=== PATIENT | male | born 1985 | race Caucasian/White ===

== ENCOUNTER 2025-04-20 08:23 | Outpatient (AMB) | payer BC, SELFPAY ==
--- NOTE | 2025-04-20 08:25 | A.OFFPC_ITS ---
Vital Signs 04/20/25 08:38 Height 6 ft 1.19 in Weight 147 lb BMI 19.3 BP 108/58 L Blood Pressure Location Lt brachial Position Sitting Pulse 72 Pulse Source Pulse Oximeter Temp 97.9 F Temp Source Oral Pulse Oximetry (%) 97 Oxygen Delivery Method Room Air Intake Visit Reasons: HUMAN RELATIONS MANAGER- Migraines Accompanied by: Self / Same As Patient Allergies No Known Allergies Allergy (Verified 04/20/25 08:39) Medication List - Last Reconciled 04/20/25 by Cedric Mosqueda MD ibuprofen 800 mg PO Q8H nicotine 1 patch transdermal Q24H nicotine (polacrilex) 4 mg buccal Q2H rizatriptan 10 mg orally; Tobacco use date assessed: 04/20/25 Dental Screening Dental Screen Date: 04/20/25 Did you have a dental visit in the last 12 months?: Yes HPI HPI Comments History of Present Illness Details History of Present Illness The patient is a 39-year-old male presenting to establish care and for management of chronic daily headaches. Chronic Migraine: The patient is establishing care after approximately 10 years without seeing a physician, primarily for evaluation of chronic headaches. He has a past diagnosis of occipital neuralgia, for which he received medications and injections that reportedly worsened his symptoms. He stopped treatment about 10 years ago after losing his insurance. Over the past 10 years, the headaches were manageable, occurring every couple of days, until a flare-up began about two months ago. He now experiences headaches daily, often waking up with a pounding pain that lasts all day. The pain is described as a pulsing pressure located on the right posterior side of his head, consistent with the greater and lesser occipital nerve region. He denies any aura, such as visual changes or smells. Due to the increased intensity and duration, he has recently started taking Tylenol and Motrin together, though he tries to limit his use. He has a history of vitamin D deficiency and has been trying magnesium citrate supplements. The patient believes the root cause of his headaches is a long-standing habit of cracking his neck, which he has done since childhood to relieve stiffness. He also notes that his sleeping position while watching television may contribute to neck stiffness and subsequent headaches. Tobacco Use Disorder: The patient reports smoking since the age of 14. He currently smokes approximat jabier 10 cigarettes per day. He states that he is ready to consider quitting. Cervicalgia: The patient reports significant neck stiffness and pressure. He has a chronic habit of cracking his neck since childhood, which at times required significant force, and he believes this initiated his headache problem. He previously started physical therapy for this issue but did not complete the course of jonathan atment. Surgical History: - Repair of gastroschisis at - Repair of bowel obstruction at approxi mately 6 years of age Medications: - Tylenol and Motrin (three tablets), ta janiya together intermittently for headaches - Magnesium citrate, for headaches Social History: - Tobacco Use: The patient smokes about 10 cigarettes per day and has been smoking since he was 14 years old. 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 - Sexual History: He reports being sexua lly active. Family History: - Father: from lung cancer; he was a smoker. Past Medical History - Occipital neuralgia, diagnosed [facility] 10 years ago and treated with medications and injections - History of Vitamin D deficiency - History of gastroschisis at - History of bowel obstruction at age 6 - Recent emergency department visit for headaches, where imaging was not performed Health Maintenance - Ordered comprehensive laboratory studi es including CBC, CMP, HbA1c, lipid panel, hepatitis panel, HIV, RPR, TSH, vitamin B12, folate, vitamin D, and magnesium. - Ordered urine testing for chlamydia an d gonorrhea. - Advised the patient to schedule an eye examination with an car conditioner. - Scheduled a follow-up appointment in t wo weeks to review results and assess treatment response. [facility] Medical History (Updated 04/20/25 @ 09:04 by Cedric Mosqueda MD) Myalgia Cervicalgia Sleeping difficulty Frequent headaches Migraines Occipital neuralgia Family History (Updated 04/20/25 @ 08:26 by Celi Erickson CMA) Mother No problems noted. Father No problems noted. Social History Housing: House Alcohol intake: current Patient Tobacco Use Status: Current everyday Tobacco user e-Cigarette/Vaping Use: Currently Using Substance Use Type: Marijuana service: No Current occupational status: employed Cognitive needs: No Hearing needs: No Vision needs: No Questionnaire PHQ-9 Over the last 2 weeks, how often have you been bothered by any of the following problems? 1. Little interest or pleasure in doing things: several days 2. Feeling down, depressed, or hopeless: several days 3. Trouble falling or staying asleep, or sleeping too much: not at all 4. Feeling tired or having little energy: several days 5. Poor appetite or overeating: several days 6. Feeling bad about yourself - or that you are a failure or have let yourself or your family down: several days 7. Trouble concentrating on things, such as reading the newspaper or watching television: several days 8. Moving or speaking so slowly that other people could have noticed. Or the opposite - being so fidgety or restless that you have been moving around a lot more than usual: not at all 9. Thoughts that you would be better off or of hurting yourself in some way: not at all Total score: 6 Depression Screening Interpretation: Negative Depression Screening Done: Yes Source: Developed by Drs. Karel Whelan, Viki Evangelista, Alfredito Mishra and colleagues, with an educational loretta from [employer]. Thrive Questionnaire Date Thrive assessed: 04/20/25 I am a: Patient What is your living situation today?: I have a steady place to live Within the past 12 months, did the food you bought not last and you didn't have the money to get more?: Never true Within the past 12 months, did you worry whether your food would run out before you got money to buy more?: Never true Do you have trouble paying for medicines?: No Do you have trouble getting transportation to medical appointments?: No Do you have trouble paying your heating and electricity bill?: No Do you have trouble taking care of your child, family member or friend?: No Do you have trouble with day-to-day activities such as bathing, preparing meals, shopping, managing finances, etc.?: No Are you currently unemployed and looking for a job?: No Are you interested in more education?: No Please select the resources that you would like help with: None Currently or been in a relationship where the following occur: No concerns reported THRIVE Score: 0 AUDIT C Alcohol Use Questionnaire (AUDIT-C) 1. How often do you have a drink containing alcohol?: 2-3 times a week 2. How many drinks containing alcohol do you have on a typical day when you are drinking?: 3 or 4 3. How often do you have six or more drinks on one occasion?: Monthly Total Score: 6 MALATHI-7 AMB Questionnaire MALATHI-7 Date MALATHI - 7 assessed: 04/20/25 Feeling nervous, anxious, or on edge: 1 = Several days Not being able to stop or control worryin = Several days Worrying too much about different things: 1 = Several days Trouble relaxin = Several days Being so restless that it is hard to sit still: 1 = Several days Becoming easily annoyed or irritable: 1 = Several days Feeling afraid as if something awful might happen: 1 = Several days Total MALATHI-7 score (0-4 normal; 5-9 mild; 10-14 moderate; 15-21 severe): 7 Source: Developed by Drs. Karel Whelan, Viki Evangelista, Alfredito Mishra and colleagues, with an educational loretta from [employer]. Review of Systems Narrative Review of Systems - Constitutional: Reports significant fatigue and daytime somnolence, stating he will fall asleep if he sits down. - Neurological: Reports daily headaches with pounding, pulsing pressure on the right posterior side of the head, present upon waking. Denies aura. - HEENT: Has not had his eyes checked in a while. Reports sensation of earwax in the left ear. Denies snoring. - Musculoskeletal: Reports neck stiffness and pressure. - Gastrointestinal: Reports normal bowel movements. - Genitourinary: Reports normal urination. - Integumentary/Extremities: Denies swelling of the legs. 10-point ROS reviewed and negative except as noted in HPI Physical exam (Primary Care) Vital Signs: Last Vital Signs Temp 97.9 F 04/20/25 08:38 Pulse 72 04/20/25 08:38 BP 108/58 L 04/20/25 08:38 Pulse Ox 97 04/20/25 08:38 Oxygen Delivery Method Room Air 04/20/25 08:38 BMI result Body Mass Index 19.3 Tobacco/Smoking Status: Tobacco use Status Tobacco use date assessed 04/20/25 04/20/25 08:26 Patient Tobacco Use Status Current everyday Tobacco 04/20/25 08:44 e-Cigarette/Vaping Use Currently Using 04/20/25 08:44 PHQ-9: PHQ-9 Score PHQ-9: Total score 6 04/20/25 08:38 Depression Screening Interpretation: Negative Thrive Assessment: Date of Thrive Assessment Date Thrive assessed 04/20/25 04/20/25 08:26 Currently or been in a relationship where the following occur: No concerns reported Narrative Physical Exam General: Well-appearing, in no acute distress. Vital signs: Within normal limits. HEENT: Normocephalic, atraumatic. PERRLA, EOMI. Conjunctiva clear, sclera anicteric. Oropharynx clear, mucous membranes moist. TMs intact on the right, unable to visualize the left due to ear wax. Neck: Supple, no lymphadenopathy, no thyromegaly, no JVD or carotid bruits. Cardiovascular: RRR, normal S1/S2, no murmurs, rubs, or gallops. Peripheral pulses 2+ and symmetric. No edema. Respiratory: Lungs clear to auscultation bilaterally, no wheezes, rales, or rhonchi. Normal effort. Abdomen: Soft, non-tender, non-distended. Normoactive bowel sounds. No hepatosplenomegaly, no masses. Notable for horizontal and vertical scars from previous surgeries. MSK: Full range of motion, no joint swelling or deformity. Normal gait. Skin: Warm, dry, intact. No rashes, lesions, or pallor. Neuro: Alert and oriented x3. Cranial nerves II-XII intact. Strength 5/5 throughout. Sensation intact. Reflexes 2+ symmetric. Normal coordination and gait. Psych: Appropriate mood and affect. Normal judgment and insight. Office Procedures Flu Questionnaire Does the patient have a severe egg allergy?: No Does the patient have severe life threatening allergies?: No Does the patient have a fever or illness today?: No Has the patient ever had Guillain-Goldvein Syndrome?: No Has the patient ever had any past reaction to a flu shot?: No Immunizations Fluarix [id number] (PF) 45 mcg (15 mcg x 3)/0.5 mL IM syringe Performing Provider: Cedric Mosqueda MD Performing Location: [facility] – [place], [place] [facility] Documented (not given) by: Celi Erickson CMA on 04/20/25 08:46 Reason Not Given: Patient Refused Coding Level of Care Code New Pt Level 4 (57105) Add On Problem Visit Only Diagnoses Migraines G43.909 History of intestinal surgery Z98.890 History of seizures Z87.898 Family history of depression Z81.8 Myalgia M79.10 Cervicalgia M54.2 Occipital neuralgia M54.81 Sleeping difficulty G47.9 Frequent headaches R51.9 Assessment & Plan Assessment & Plan (1) Migraines: Code(s): G43.909 - Migraine, unspecified, not intractable, without status migrainosus Category: Medical (2) History of intestinal surgery: Code(s): Z98.890 - Other specified postprocedural states (3) History of seizures: Code(s): Z87.898 - Personal history of other specified conditions (4) Family history of depression: Code(s): Z81.8 - Family history of other mental and behavioral disorders (5) Myalgia: Code(s): M79.10 - Myalgia, unspecified site Category: Medical (6) Cervicalgia: Code(s): M54.2 - Cervicalgia Category: Medical (7) Occipital neuralgia: Code(s): M54.81 - Occipital neuralgia Category: Medical (8) Sleeping difficulty: Code(s): G47.9 - Sleep disorder, unspecified Category: Medical (9) Frequent headaches: Code(s): R51.9 - Headache, unspecified Category: Medical Plan Consent The patient provided verbal consent for STI screening for chlamydia and gonorrhea. Patient was informed and verbally consented to the use of an ambient scribe for clinic note documentation during this visit. Plan 1. Chronic Migraine - Prescribed ibuprofen 800 mg for pain management. - Prescribed rizatriptan for abortive therapy, to be taken at headache onset, with a second dose permitted after two hours if symptoms persist. - Placed a referral to Neurology for specialist evaluation and management. 2. Tobacco Use Disorder - Prescribed nicotine replacement therapy consisting of a 14 mg daily patch and lozenges for breakthrough cravings to support smoking cessation. 3. Cervicalgia - Placed a referral to Physical Therapy to address neck stiffness and pain. - Advised against chiropractic manipulation at this time due to the neurologic nature of his symptoms. 4. Fatigue And Daytime Sleepiness - Ordered an at-home sleep study to evaluate for a potential sleep disorder, such as sleep apnea, as a cause for his fatigue and morning headaches. 5. Cerumen Impaction, Left Ear - Prescribed ear drops to be used in the left ear twice daily for five days prior to his follow-up visit to soften the wax for subsequent examination and potential removal. Discussion Notes I reviewed with the patient that he is presenting to [facility] care after a ten- year absence from medical oversight, with a primary complaint of chronic, debilitating daily headaches that are consistent with his prior diagnosis of occipital neuralgia and also fit a pattern of chronic migraine. I explained the initial treatment plan, which includes abortive therapy with rizatriptan and an anti-inflammatory medication, ibuprofen 800mg, for symptomatic relief. We discussed conducting a comprehensive workup to identify any underlying or contributing factors. This includes extensive lab work to screen for nutritional deficiencies (like vitamin D), metabolic issues, and infections, as well as a referral to Neurology for specialist management. A physical therapy referral was initiated to address his chronic neck stiffness, and I advised against palliative care nurse at this time given his nerve-related symptoms. I explained that his smoking is a significant trigger for headaches, and we decided to start nicotine replacement therapy to support his desire to quit. Additionally, due to his symptoms of fatigue and morning headaches, an at-home sleep study will be ordered to rule out sleep apnea. The patient consented to STI screening. We scheduled a follow-up in two weeks to review all diagnostic results and monitor his response to the initiated treatments. Patient Instructions - Take one tablet of Rizatriptan as soon as you feel a headache starting. If the headache does not improve in two hours, you may take a second tablet. - You may take Ibuprofen 800 mg for headache pain. - To help you quit smoking, apply one 14 mg nicotine patch to your skin each day. Use a nicotine lozenge if you feel a strong craving to smoke. - Put five drops in your left ear twice a day for the five days just before your next appointment. This will help soften the earwax. - Please go to the lab to have your blood drawn and provide a urine sample for the tests that were ordered. - Schedule an appointment with an eye doctor to have your vision checked, as this could be related to your headaches. - The neurology and physical therapy offices will contact you to schedule your appointments. - You will receive a kit for an at-home sleep study. Please follow the instructions provided with the kit. - Please return for a follow-up visit in two weeks to discuss your test results and how you are feeling. Medical Decision Making The patient is a 39-year-old male establishing care after a 10-year lapse, presenting with debilitating chronic daily headaches. His symptoms are consistent with his prior diagnosis of occipital neuralgia and also demonstrate features of chronic migraine, characterized by daily, pounding, unilateral pain. The primary goal of this visit is to establish care, provide acute symptomatic relief, and initiate a comprehensive diagnostic workup. I have started him on rizatriptan for abortive therapy and high-dose ibuprofen for anti-inflammatory and analgesic effects. Given the chronicity and severity, a neurology referral is imperative for long-term management and consideration of prophylactic medications. The differential for his headache exacerbation is broad, and includes cervicogenic, systemic, and sleep-related causes. His report of significant neck stiffness and a long-standing habit of neck cracking strongly suggests a cervicogenic component, warranting a physical therapy referral; chiropractic manipulation is deferred due to the risk of nerve injury. His symptoms of profound daytime fatigue and morning headaches raise suspicion for obstructive sleep apnea, prompting an at-home sleep study. Comprehensive labs are ordered to rule out underlying metabolic, endocrine, or nutritional deficiencies (e.g., vitamin D, magnesium) that could contribute to his condition. Health maintenance is also a crucial focus. We are addressing his tobacco use, a major modifiable risk factor for headaches and overall health, by initiating nicotine replacement therapy. Baseline screenings (STI, vision) are also being implemented. Follow-up in two weeks is planned to review all findings and adjust the treatment plan accordingly. Total Time Statement 30 min Total time spent caring for the patient today includes pre-visit chart review, documentation, review of laboratory and diagnostic imaging results, medication reconciliation, medically necessary evaluation, counseling on diagnoses, care coordination, ordering appropriate tests and medications, review of tests pe rformed by other providers, reporting test results to the patient, and communication with other healthcare providers. Orders: Orders Complete Blood Count Auto Diff Today Z13.9 - Encounter for screening, unspecified Hepatitis B Surface Antigen Today Z13.9 - Encounter for screening, unspecified Hepatitis C Antibody Today Z13.9 - Encounter for screening, unspecified TSH reflex Free T4 Today Z13.9 - Encounter for screening, unspecified Lipid Panel Today Z13.9 - Encounter for screening, unspecified Magnesium Today Z13.9 - Encounter for screening, unspecified RT home sleep study Today G47.9 - Sleep disorder, unspecified PT Evaluation and Treatment Today M54.2 - Cervicalgia, M79.10 - Myalgia, unsp ecified site Influenza [id number] Immunization Today Z23 - Encounter for immunization Syphilis Screen Today Z13.9 - Encounter for screening, unspecified Comprehensive Met. Panel Today Z13.9 - Encounter for screening, unspecified HIV Ab/Ag Today Z13.9 - Encounter for screening, unspecified UA CC w/rflx Micro + Cult Today Z13.9 - Encounter for screening, unspecified Vitamin B12 and Folate Today Z13.9 - Encounter for screening, unspecified Hemoglobin A1c Today Z13.9 - Encounter for screening, unspecified Hepatitis B Surface Antibody Today Z13.9 - Encounter for screening, unspecified Vitamin D 25-OH (D2 and D3) Today Z13.9 - Encounter for screening, unspecified CT NG by PCR Urine Today Z13.9 - Encounter for screening, unspecified Referrals Neurology Referral G43.909 - Migraine, unspecified, not intractable, without status migrainosus, M54.81 - Occipital neuralgia, R51.9 - Headache, unspecified Medications: New ibuprofen 800 mg PO Q8H 30 tabs 0RF rizatriptan 10 mg orally; 14 tabs 0RF nicotine 1 patch transdermal Q24H 28 ea 0RF nicotine (polacrilex) 4 mg buccal Q2H 100 ea 0RF
[2025-04-20 08:38] VITALS: BP 108/58; PULSE 72; TEMP 36.6; O2SAT 97; BMI 19.3
== END 2025-04-20 09:12 | disposition home or self-care (01) ==
LOC: HO.HMCFMS 08:23
PROVIDERS: Visit Provider Student in an Organized Health Care Education/Training Program
DX: G43.909 Migraine, unspecified, not intractable, without status migrainosus (principal); Z98.890 Other specified postprocedural states; Z87.898 Personal history of other specified conditions; Z81.8 Family history of other mental and behavioral disorders; M79.10 Myalgia, unspecified site; M54.2 Cervicalgia; M54.81 Occipital neuralgia; G47.9 Sleep disorder, unspecified; R51.9 Headache, unspecified; Z23 Encounter for immunization

== ENCOUNTER 2025-04-20 08:23 | Outpatient (REF) | payer BC, SELFPAY ==
--- OUTSIDE RECORDS SUMMARY | 2025-04-20 10:40 | XMS_ITS | Data Portability ---
Author Organization [facility] Address [address] [facility],[place]ter[place] [address] [place] [id number] Care Team Providers Care Form Maker Plaster Name Role Phone JOEL VASQUEZ Referring Provider [phone] Assessment Encounter Date Assessment Date Assessment LastModified by Organization Details LastModified Time 12/30/2018 12/30/2018 Joel Santiago is a 33 year old man with right sided headaches. On exam ,he has tenderness on palpation of the right occipital region. He has features of occipital neuralgia. Trial of right occipital nerve block under ultrasound guidance was recommended. The risks and benefits of the procedure were discussed in detail. He wishes to proceed. An appointment has been booked for the same. 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 [email or web address] Not available 12/30/2018 16:01:11 01/12/2019 01/12/2019 Joel Santiago is a 33 year old man with right sided headaches. On exam ,he has tenderness on palpation of the right occipital region. He has features of occipital neuralgia. He is here for trial of right occipital nerve block under ultrasound guidance . The risks and benefits of the procedure were discussed in detail. He wishes to proceed. He needs to follow up in four weeks. [email or web address] Not available 01/12/2019 16:24:43 02/03/2019 02/03/2019 Joel Santiago is a 33 year old man with right sided headaches. On exam ,he has tenderness on palpation of the right occipital region. He has features of occipital neuralgia. I recommend a repeat right occipital nerve block under ultrasound guidance . The risks and benefits of the procedure were discussed in detail. He wishes to proceed. He will call for an appointment once his infection is improved. [email or web address] Not available 02/14/2019 19:52:38 02/17/2019 02/17/2019 Joel Santiago is a 33 year old man with right sided headaches. On exam ,he has tenderness on palpation of the right occipital region. He has features of occipital neuralgia. He is here for right occipital nerve block under ultrasound guidance . The risks and benefits of the procedure were discussed in detail. He wishes to proceed. He needs to follow up in four weeks. [email or web address] Not available 02/18/2019 17:09:21 Plan of Treatment Reminders Order Date Submit Date Provider Last Modified By Organization Details Last Modified Time Details Appointments None record ed. Lab None record ed. Referral None record ed. Procedures None record ed. Surgeries None record ed. Imaging None record ed. Medication Orders None record ed. Patient TargetsNo targets recorded. Patient Instructions Encounter Date Encounter Id Patient Instructions Last Modified By Organization Details Last Modified Time 12/30/2018 [id number] He was advised against bed rest lasting longer than four days and to continue activities as tolerated. [email or web address] Not available 12/31/2018 08:33:22 01/12/2019 [id number] He was advised against bed rest lasting longer than four days and to continue activities as tolerated. [email or web address] Not available 01/12/2019 16:24:11 02/03/2019 [id number] He was advised against bed rest lasting longer than four days and to continue activities as tolerated. [email or web address] Not available 02/14/2019 19:51:08 02/17/2019 [id number] He was advised against bed rest lasting longer than four days and to continue activities as tolerated. [email or web address] Not available 02/18/2019 17:08:12 Reason for Referral None Reported. Problems Name Problem SNOMED Code Status Onset Date Resolution Date Notes Provider Name and Address Organization Details Recorded Time Cervico-occ ipital neuralgia 21971304 Active Real Munroe MD [address] [facility] , [address], [place], [address] , [place] [facility] 9 15:48:00 Muscle pain 75123082 Active 019 Real Munroe MD [address] , [address], [place], [address] , [place] [facility] 9 15:50:40 Problem Notes None recorded. Procedures Surgical History Date Name Laterality Status Provider Name and Address Organization Details Recorded Time 9 Greater Occipital Nerve Block(s) completed Real Munroe MD [address] [facility] , [address], [place], [address], [place] [facility] 02/18/2019 17:08:22 9 Greater Occipital Nerve Block(s) completed Real Munroe MD [address] [facility] , [address], [place], [address], [place] [facility] 01/12/2019 16:23:23 Other completed Adri Wilkinson [place] [facility] 12/30/2018 13:25:41 Imaging Results None recorded. Procedure Notes None recorded. Medical Equipment None Reported. Allergies No known drug allergies Medications Name Sig Start Date Stop Date Status Note LastModified by Organization Details LastModified Time doxycycline hyclate 100 mg capsule 2018 completed Not Available Not Available Not Available hydrocodone 5 mg-acetaminop hen 325 mg tablet 2018 completed Not Available Not Available Not Available famotidine 20 mg tablet active Not Available Not Available No t Available cephalexin 500 mg capsule 2018 completed Not Available Not Available Not Available Vitals Date Recorded Heart rate Oxygen saturation Body height Body mass index (BMI) Body weight Systolic And Diastolic Provider Name and Address Organization Details Last Updated DateTime 9 76 /min 98 % 187.96 cm 19.3 kg/m2 11358.8 6 g 119/83 mm[Hg] Adri Wilkinson [place] [facility] 9 13:15:04 Date Recorded Body height Heart rate Oxygen saturation Systolic And Diastolic Provider Name and Address Organization Details Last Updated DateTime 01/12/2019 187.96 cm 77 /min 99 % 119/69 mm[Hg] Adri Wilkinson [place] [facility] 01/12/2019 15:53:14 Date Recorded Body height Body mass index (BMI) Body weight Heart rate Oxygen saturation Pain severity - 0-10 verbal numeric rating [Score] - Reported Systolic And Diastolic Provider Name and Address Organization Details Last Updated DateTime 9 187.96 cm 19.3 kg/m2 34141.8 6 g 79 /min 95 % 4 114/78 mm[Hg] Real bergman MD [address] , [address], [place], [address], [place] [facility] 9 14:41:15 Date Recorded Body height Heart rate Oxygen saturation Pain severity - 0-10 verbal numeric rating [Score] - Reported Systolic And Diastolic Provider Name and Address Organization Details Last Updated DateTime 02/17/2019 187.96 cm 88 /min 99 % 8 110/80 mm[Hg] Real bergman MD [address] , [address], [place], [address], [place] [facility] 9 11:00:33 Social History Question Answer Notes LastModified by [employer] Details LastModified Time Tobacco Smoking Status Current Every Day [facility]oker [facility] 02/17/2020 03:16:10 Which Illicit Or Recreational Drugs Have You Used? No [id number] Information not available 02/17/2020 Education 12 With Some College Information not available 12/30/2018 Live Alone Or With Others? With Others Family Information not available 12/30/2018 Marital Status Single Informatio n not available 12/30/2018 How Much Tobacco Do You Smoke? 0.5 PPD [id number] Information not available 02/17/2020 How Many Years Have You Smoked Tobacco? 15 [id number] Information not available 02/17/2020 Sex: Unknown Functional Status Question Answer Note LastModified by [employer] Details LastModified Time What is your level of alcohol consumption? 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 [employer] Information not available 12/30/2018 Mental Status None recorded. Family History Relationship Description Onset Age of this Age Resolved Age Notes LastModified by Organization Details LastModified Time Mother Malignant neoplastic disease Skin Not available 2018 13:28:44 Father Gout Not available 12/30/2018 13:29:10 Medical History Condition Response Anxiety Disorder Y Headache Y Migrane Y Past Encounters Encounter ID Performer Location Encounter Start Date Encounter Closed Date Diagnosis/Indication Diagnosis SNOMED-CT Code Diagnosis ICD10 Code Diagnosis IMO Codes Diagnosis Note [id number] Real Munroe MD PAIN OFFICE [address] [facility] [place] [address] 12/30/2018 12:48:10 12/30/2018 16:01:42 Cervico-occipital neuralgia 34114773 M54.81 Muscle pain 47039744 M79 .10 [id number] Real Munroe MD PAIN OFFICE [address] [facility] [place] [address] 01/12/2019 15:18:18 01/12/2019 16:25:44 Cervico-occipital neuralgia 46899233 M54.81 Muscle pain 78968144 M79 .10 [id number] Real Munroe MD PAIN OFFICE [address] [facility] [place] [address] 02/03/2019 14:28:38 02/14/2019 19:53:29 Cervico-occipital neuralgia 36512363 M54.81 Muscle pain 93876949 M79 .10 [id number] Real Munroe MD PAIN OFFICE [address] [place] [address] 02/17/2019 10:54:58 02/18/2019 17:10:14 Cervico-occipital neuralgia 07048540 M54.81 Muscle pain 07617438 M79 .10 Health Concerns Section Related Observation LastModified by Organization Detai ls LastModified Time None Recorded Concern Status LastModified by Organization Details LastModified Time None Recorded Advance Directives Directive None Recorded Payers Insurance Date Sequence Insurance Name Policy Number Policy Terrell Covered Member ID Terrell Member ID Guarantor Name 12/30/2018 1 [employer] (HMO) [id number] Joel Santiago [id number] Joel Santiago 03/14/2019 1 [employer] (POS) [id number] Joel Santiago [id number] Joel Santiago Notes Date Note Type Note Provider Name and Address Organization Details Recorded Time 12/30/2018 text/html Joel Santiago is a 33 year old man with right sided headaches . The pain started spontaneously one year ago and is becoming greater. He states the pain is located in the neck at the base of the skull and radiates over the lateral aspect of his head and behind his right eye. He describes the pain as a sharp stabbing pain which is at times throbbing and aching in nature. Current pain level is 4-10/10. Pain is aggravated by bending forward and certain neck and head movements . Pain interferes with sleep. Nothing helps the pain. He has trialed chiropractic treatment and excedrin migraine without pain benefit. CT Scan fo head and brain showed no acute intracranial pathology. CT Angio of the head and neck was unremarkable Real Munroe MD [address] [facility] , [address], [place], [address], [place] [facility] 12/31/2018 08:33:30 01/12/2019 text/html He is here for a right occipital nerve block under ultrasound guidance. Real Munroe MD [address] [facility] , [address], [place], [address], [place] [facility] 01/12/2019 17:13:25 02/03/2019 text/html He is here for a follow up after a right occipital nerve block under ultrasound guidance. He reports some pain benefit. He continues to have headaches. He has a cold today. Real Munroe MD [address] [facility] , [address], [place], [address], [place] [facility] 02/15/2019 13:31:52 02/17/2019 text/html He is here for a right occipital nerve block under ultrasound guidance. Real Munroe MD [address] [facility] , [address], [place], [address], [place] [facility] 02/20/2019 09:38:04
[2025-04-20 14:19] LABS: Appearance Urine Cloudy; Glucose Urine UA Negative (Negative); PH 8.5 (5.0-9.0); Specific Gravity - Urine 1.015 (1.005-1.025); UMIC TRIGGER UACC YES
[2025-04-20 14:20] LABS: MANUAL DIFF FLAG NO
[2025-04-20 14:31] LABS: Hematocrit 41.2 % (42.0-52.0); Hemoglobin 13.5 g/dl (14.0-18.0); Imm Gran Abs Auto 0.01 X10*3/uL (0.00-0.03); Imm Gran Pct Auto 0.2 % (0.0-0.4); Lymphocytes Absolute Auto 1.5 X10*3/uL (1.2-4.9); Mean Corpuscular HGB Conc 32.8 g/dl (31.0-36.0); Mean Corpuscular Hemoglobin 31.0 pg (27.0-33.0); Mean Corpuscular Volume 94.5 fL (80.0-98.0); NRBC Abs Auto 0.000 X10*3/uL (0.0-0.012); NRBC Pct Auto 0.0 /100WBC (0.0-0.2); Platelet Count 290 X10*3/uL (160-400); Red Blood Count 4.36 X10*6/uL (4.60-5.80); White Blood Count 6.2 X10*3/uL (4.8-10.8)
[2025-04-20 14:44] LABS: Other Crystals Urine Present
[2025-04-20 14:48] LABS: Hemoglobin A1C 86.7844 umol/L
[2025-04-20 15:15] LABS: Folate 8.4 ng/mL (> or = 4.0); Vitamin B12 781 pg/mL (200-900)
[2025-04-20 15:31] LABS: Alanine Aminotransferase 42 U/L (0-40); Albumin Level 5.0 g/dL (3.5-5.0); Alkaline Phosphatase 42 U/L (39-117); Anion Gap 11 (12-20); Aspartate Amino Transferase 39 U/L (5-37); Blood Urea Nitrogen 12 mg/dL (9-16); Calcium 9.9 mg/dL (8.4-10.2); Carbon Dioxide 27 mmol/L (22-29); Chloride 108 mmol/L (96-108); Cholesterol 173 mg/dL (<200); Estimated Glomerular Filt Rate > 60; HDL Cholesterol 65 mg/dL (>40); Magnesium 2.1 mg/dL (1.6-2.6); Potassium 3.9 mmol/L (3.3-5.1); Sodium 142 mmol/L (135-145); Total Protein 7.4 g/dL (6.5-8.0); Triglycerides 40 mg/dL (<150)
[2025-04-20 15:51] LABS: CT PCR Urine NOT DETECTED (Not Detect.); NG PCR Urine NOT DETECTED (Not Detect.)
[2025-04-21 08:11] LABS: HBS Num1 6.13 mIU/mL (0-7.99); HBsAGNum1 0.63 S/CO (0.00-0.99); HIV Num 1 0.20 S/CO (0.00-0.99); Hepatitis B Surface Antigen Negative (Negative); ~HepC Num1 0.13 S/CO (0.00-0.79); ~Hepatitis B Surface Antibody NONREACTIVE (Nonreactive); ~Hepatitis C Antibody Nonreactive (Nonreactive)
[2025-04-21 08:42] LABS: Syphilis Screen Nonreactive (Nonreactive)
[2025-04-24 13:14] LABS: Vitamin D 25-OH, D2 <4 ng/mL; Vitamin D 25-OH, D3 13 ng/mL; Vitamin D 25-OH, Total 13 ng/mL (30-100)
== END 2025-04-20 08:24 | disposition home or self-care (01) ==
LOC: HO.HKASLDS 08:23
PROVIDERS: PCP Student in an Organized Health Care Education/Training Program; Visit Provider Student in an Organized Health Care Education/Training Program
DX: Z28.21 Immunization not carried out because of patient refusal (principal); Z13.9 Encounter for screening, unspecified; G43.909 Migraine, unspecified, not intractable, without status migrainosus; G47.9 Sleep disorder, unspecified; M79.10 Myalgia, unspecified site; M54.2 Cervicalgia; M54.81 Occipital neuralgia; R51.9 Headache, unspecified; Z98.890 Other specified postprocedural states; Z87.898 Personal history of other specified conditions; Z81.8 Family history of other mental and behavioral disorders; Z79.899 Other long term (current) drug therapy
CPT/HCPCS: 80053; 80061; 81001; 82306; 82607; 82746; 83036; 83735; 84443; 85025; 86706; 86780; 86803; 87340; 87389; 87491; 87591; 90471; 96127